=== PATIENT | female | born 1960 | race American Indian/Alaskan Native ===

== ENCOUNTER 2017-09-19 13:35 | Inpatient (IN) | payer OTHER ==
--- NOTE | 2017-09-19 14:36 | ED PDOC ---
Arrival/HPI - General Chief Complaint: Palpitations Time Seen by Provider: 09/19/17 13:46 Historian: Patient - History of Present Illness Narrative History of Present Illness (Text): 09/19/17 14:17 A 57 year old female, with no significant past medical history, presents to the emergency department complaining of palpitations. Patient reports walking downstairs to move the car and began experiencing palpitations. EMS was called and had found patient's heart rate to be greater than 180. Heart rate resolved prior to arrival to ER and was given Aspirin 81 mg x 3 in the field. No rhythm strip was performed. Patient states never having this happen before and denies of any weight loss/gain, recent fever, URI symptoms, nausea, vomiting, diarrhea , or any other complaints. Denies significant alcohol use. Denies drug use. No PMD Past Medical History - Provider Review Nursing Documentation Reviewed: Yes - Infectious Disease Hx of Infectious Diseases: None - Reproductive Menopause: Yes - Psychiatric Hx Substance Use: No - Anesthesia Hx Anesthesia: No Family/Social History - Physician Review Nursing Documentation Reviewed: Yes Family/Social History: No Known Family HX Smoking Status: Unknown If Ever Smoked Hx Alcohol Use: No Hx Substance Use: No Allergies/Home Meds Allergies/Adverse Reactions: Allergies codeine Allergy (Intermediate, Verified 09/19/17 13:48) FATIGUE Home Medications: Home Meds Medication Instructions Recorded Confirmed No Known Home Med 09/19/17 09/19/17 Review of Systems - Physician Review All systems were reviewed & negative as marked: Yes - Review of Systems Constitutional: absent: Weight Change, Fevers Respiratory: absent: SOB, Cough Cardiovascular: Palpitations. absent: Chest Pain, Edema, Calf Pain, GRIGGS, Orthopnea, Syncope Gastrointestinal: absent: Abdominal Pain, Constipation, Diarrhea, Nausea, Vomiting Neurological: absent: Headache, Dizziness, Focal Weakness, Gait Changes, Speech Changes, Facial Droop Physical Exam Vital Signs Reviewed: Yes Vital Signs Temp Pulse Resp BP Pulse Ox 09/19/17 13:49 98.2 F 80 18 137/65 98 Temperature: Afebrile Blood Pressure: Normal Pulse: Regular Respiratory Rate: Normal Appearance: Positive for: Well-Appearing, Non-Toxic, Comfortable Pain Distress: None Mental Status: Positive for: Alert and Oriented X 3 - Systems Exam Head: Present: Atraumatic, Normocephalic Pupils: Present: PERRL Extroacular Muscles: Present: EOMI Conjunctiva: Present: Normal Mouth: Present: Moist Mucous Membranes Neck: Present: Normal Range of Motion, Other (no thyromegaly) Respiratory/Chest: Present: Clear to Auscultation, Good Air Exchange. No: Respiratory Distress, Accessory Muscle Use Cardiovascular: Present: Regular Rate and Rhythm, Normal S1, S2. No: Murmurs Abdomen: Present: Normal Bowel Sounds. No: Tenderness, Distention, Peritoneal Signs Back: Present: Normal Inspection Upper Extremity: Present: Normal Inspection. No: Cyanosis, Edema Lower Extremity: Present: Normal Inspection. No: Edema Neurological: Present: GCS=15, CN II-XII Intact, Speech Normal Skin: Present: Warm, Dry, Normal Color. No: Rashes Psychiatric: Present: Alert, Oriented x 3, Normal Insight, Normal Concentration Medical Decision Making ED Course and Treatment: 09/19/17 14:20 Impression: 57 year old female with palpitations. Normal physical examination. Plan: -- EKG -- Chest X-ray -- Chest CT -- Labs -- Influenza A B test -- Reassess and disposition Progress Notes: EKG: Ordered, reviewed, and independently interpreted the EKG. Rate : 75 BPM Rhythm : NSR Interpretation : t wave inversions in III, t wave flattening v3-v6 Comparison : No previous EKG for comparison. 09/19/2017 15:28 Chest X-ray IMPRESSION: No active disease. Dictator: Magdi Low MD 09/19/2017 16:[address] IMPRESSION: Unremarkable CT pulmonary angiogram. No pulmonary embolus. Dictator: Magdi Low MD 09/19/17 17:30 Admitted to hospitalist for palpitations - Lab Interpretations Lab Results: 09/19/17 14:20 09/19/17 14:20 Lab Results 09/19/17 14:20: Free T4 0.96, TSH 3rd Generation 0.55 09/19/17 14:20: Sodium 143, Potassium 3.9, Chloride 106, Carbon Dioxide 27, Anion Gap 14, BUN 13, Creatinine 1.0, Est GFR ( Amer) > 60, Est GFR (Non- Af Amer) 57, Random Glucose 126 H, Calcium 9.5, Phosphorus 3.4, Magnesium 2.4 H , Total Bilirubin 0.3, AST 25, ALT 24, Alkaline Phosphatase 73, Total Creatine Kinase 118, Troponin I 0.02, NT-Pro-B Natriuret Pep 94.9, Total Protein 7.7, Albumin 3.9, Globulin 3.8, Albumin/Globulin Ratio 1.0 L 09/19/17 14:20: PT 11.3, INR 0.99, APTT 36.7 H, D-Dimer, Quantitative 1777 H 09/19/17 14:20: Influenza Typ A,B (EIA) Negative for flu a/b 09/19/17 14:20: WBC 5.7, RBC 4.71, Hgb 12.0, Hct 37.0, MCV 78.6 L, MCH 25.5, MCHC 32.4, RDW 15.4 H, Plt Count 348, MPV 9.2, Gran % 62.4, Lymph % (Auto) 29.0 , [place] % (Auto) 7.2 H, Eos % (Auto) 1.2 L, Baso % (Auto) 0.2, Gran # 3.55, Lymph # (Auto) 1.7, [place] # (Auto) 0.4, Eos # (Auto) 0.1, Baso # (Auto) 0.01 - RAD Interpretation Radiology Orders: 09/19/17 13:59 CHEST PORTABLE [RAD] Stat 09/19/17 15:11 ANGIO CHEST PE PROTOCOL [CT] Stat - Scribe Statement The provider has reviewed the documentation as recorded by the Shelbi Connor Provider Scribe Attestation: All medical record entries made by the Miguelitoibmerrick were at my direction and personally dictated by me. I have reviewed the chart and agree that the record accurately reflects my personal performance of the history, physical exam, medical decision making, and the department course for this patient. I have also personally directed, reviewed, and agree with the discharge instructions and disposition. Disposition/Present on Arrival - Present on Arrival Any Indicators Present on Arrival: No History of DVT/PE: No History of Uncontrolled Diabetes: No Urinary Catheter: No History of Decub. Ulcer: No History Surgical Site Infection Following: None - Disposition Have Diagnosis and Disposition been Completed?: Yes Diagnosis: Palpitations Disposition: HOSPITALIZED Disposition Time: 17:30 Patient Plan: Observation Condition: FAIR Referrals: [facility] Juan Diego Flannery, [Primary Care Provider] - Follow up with primary Forms: [employer] ([place]ian)
[2017-09-19 14:42] LABS: BASO # 0.01 K/mm3 (0.0-2.0); BASO % 0.2 % (0.0-3.0); EOS # 0.1 (0.0-0.7); EOS % 1.2 % (1.5-5.0); GRAN # 3.55 (1.4-6.5); GRAN % 62.4 % (50.0-68.0); LYMPH # 1.7 (1.2-3.4); MEAN CELL VOLUME 78.6 fl (80.0-105.0); MEAN CORPUSCULAR HEMOGLOBIN 25.5 pg (25.0-35.0); MEAN CORPUSCULAR HGB CONC 32.4 g/dl (31.0-37.0); MEAN PLATELET VOLUME 9.2 fl (7.0-11.0); MONO # 0.4 (0.1-0.6); MONO % 7.2 % (1.0-6.0); RBC 4.71 10^6/uL (3.5-6.1); RED CELL DISTRIBUTION WIDTH 15.4 % (11.5-14.5); WHITE BLOOD COUNT 5.7 10^3/ul (4.5-11.0)
[2017-09-19 15:01] LABS: INR 0.99 (0.93-1.08); PARTIAL THROMBOPLASTIN TIME 36.7 Seconds (25.1-36.5); PROTHROMBIN TIME 11.3 SECONDS (9.4-12.5)
[2017-09-19 15:02] LABS: ALBUMIN 3.9 g/dL (3.0-4.8); ALT/SGPT 24 U/L (7-56); AST/SGOT 25 U/L (14-36); B-TYPE NATRIURETIC PEPTIDE 94.9 pg/mL (0-450); BLOOD UREA NITROGEN 13 mg/dL (7-21); CALCIUM 9.5 mg/dL (8.4-10.5); GFR AFRICAN-AMERICAN > 60; GFR NON-AFRICAN AMERICAN 57; MAGNESIUM 2.4 mg/dL (1.7-2.2); TROPONIN I 0.02 ng/mL
[2017-09-19] MEDS ORDERED: Iohexol 350 MG/100 ML VIAL ONE (15:20)
--- NOTE | 2017-09-19 15:29 | RAD ---
HISTORY: palpitations COMPARISON: No prior. FINDINGS: LUNGS: No active pulmonary disease. PLEURA: No significant pleural effusion identified, no pneumothorax apparent. CARDIOVASCULAR: Normal. OSSEOUS STRUCTURES: No significant abnormalities. VISUALIZED UPPER ABDOMEN: Normal. OTHER FINDINGS: None. IMPRESSION: No active disease.
--- NOTE | 2017-09-19 16:05 | CT ---
PROCEDURE: CT Chest with contrast (Pulmonary Angiogram) HISTORY: chest pain, palpitations COMPARISON: None available. TECHNIQUE: Axial computed tomography images were obtained of the chest in the pulmonary arterial phase of enhancement. Coronal and sagittal reformatted images were created and reviewed. Intravenous contrast dose: 100 mL Omnipaque 350 Radiation dose: Total exam DLP = 443.60 mGy-cm. This CT exam was performed using one or more of the following dose reduction techniques: Automated exposure control, adjustment of the mA and/or kV according to patient size, and/or use of iterative reconstruction technique. FINDINGS: PULMONARY ARTERIES: Unremarkable. No pulmonary embolism. AORTA: No acute findings. No thoracic aortic aneurysm. LUNGS: Unremarkable. No nodule, mass or pulmonary consolidation. PLEURAL SPACES: Unremarkable. No effusion or pneuomothorax. HEART: Unremarkable. No cardiomegaly. No significant pericardial effusion. LYMPH NODES: No lymphadenopathy. BONES, CHEST WALL: Unremarkable. No fracture or destructive lesion OTHER FINDINGS: Unremarkable. IMPRESSION: Unremarkable CT pulmonary angiogram. No pulmonary embolus.
[2017-09-19 16:36] LABS: FREE T4 0.96 ng/dL (0.78-2.19)
--- NOTE | 2017-09-19 17:59 | CARD ---
APPROVED REPORT EKG Measurement Heart [id number] NC [id number] <Conclusion> Normal sinus rhythm Nonspecific T wave abnormality Abnormal ECG
--- NOTE | 2017-09-19 18:39 | CP.PCM.HP ---
<Warren Ochoa - Last Filed: 09/19/17 18:28> History of Present Illness - History of Present Illness History of Present Illness: CC: Palpitations 57F with no significant past medical history presents to the ED with palpitations. Pt states that she was at work today and during noon break she went outside to move her car when she started having palpitations. She than went back to her work and someone checked her heart rate and it was found to be 186BPM. Pt states that this is the first time this ever happened. Pt does state that >30 years ago when she was she had an arrhythmia but states that it went away on its own. She denies any associated sob or chest pain. Denies any sick contact or recent travel. 12 Point ROS performed and negative other than stated above. PMH: denies PSH: "gluteal cyst" removal ALL: codeine SH: former smoker of 1/2 PPD > 15 years , denies ETOH abuse or recreational abuse FH: denies Present on Admission - Present on Admission Any Indicators Present on Admission: No Review of Systems - Review of Systems All systems: reviewed and no additional remarkable complaints except Past Patient History - Infectious Disease Hx of Infectious Diseases: None - Past Social History Smoking Status: Unknown If Ever Smoked - PSYCHIATRIC Hx Substance Use: No - ANESTHESIA Hx Anesthesia: No Meds Allergies/Adverse Reactions: Allergies Allergy/AdvReac Type Severity Reaction Status Date / Time codeine Allergy Intermediate FATIGUE Verified 09/19/17 13:48 Physical Exam - Constitutional Appears: No Acute Distress - Head Exam Head Exam: ATRAUMATIC, NORMOCEPHALIC - Eye Exam Eye Exam: EOMI, PERRL - ENT Exam ENT Exam: Mucous Membranes Moist - Respiratory Exam Respiratory Exam: Clear to Auscultation Bilateral. absent: Rales, Wheezes - Cardiovascular Exam Cardiovascular Exam: REGULAR RHYTHM, RRR, +S1, +S2 - GI/Abdominal Exam GI & Abdominal Exam: Normal Bowel Sounds, Soft. absent: Distended, Tenderness - Extremities Exam Extremities exam: Negative for: calf tenderness, pedal edema - Neurological Exam Neurological exam: Alert, Oriented x3 - Psychiatric Exam Psychiatric exam: Normal Mood - Skin Skin Exam: Dry, Intact, Warm Results - Vital Signs Recent Vital Signs: Last Vital Signs Temp 98.2 F 09/19/17 13:49 Pulse 80 09/19/17 13:49 Resp 18 09/19/17 13:49 BP 137/65 09/19/17 13:49 Pulse Ox 98 09/19/17 13:49 - Labs Result Diagrams: 09/19/17 14:20 09/19/17 14:20 Labs: Laboratory Results - last 24 hr 09/19/17 09/19/17 09/19/17 14:20 14:20 14:20 WBC 5.7 RBC 4.71 Hgb 12.0 Hct 37.0 MCV 78.6 L MCH 25.5 MCHC 32.4 RDW 15.4 H Plt Count 348 MPV 9.2 Gran % 62.4 Lymph % (Auto) 29.0 [place] % (Auto) 7.2 H Eos % (Auto) 1.2 L Baso % (Auto) 0.2 Gran # 3.55 Lymph # (Auto) 1.7 [place] # (Auto) 0.4 Eos # (Auto) 0.1 Baso # (Auto) 0.01 PT 11.3 INR 0.99 APTT 36.7 H D-Dimer, Quantitative 1777 H Sodium Potassium Chloride Carbon Dioxide Anion Gap BUN Creatinine Est GFR ( Amer) Est GFR (Non-Af Amer) Random Glucose Calcium Phosphorus Magnesium Total Bilirubin AST ALT Alkaline Phosphatase Total Creatine Kinase Troponin I NT-Pro-B Natriuret Pep Total Protein Albumin Globulin Albumin/Globulin Ratio Free T4 TSH 3rd Generation Influenza Typ A,B (EIA) Negative for flu a/b 09/19/17 09/19/17 14:20 14:20 WBC RBC Hgb Hct MCV MCH MCHC RDW Plt Count MPV Gran % Lymph % (Auto) [place] % (Auto) Eos % (Auto) Baso % (Auto) Gran # Lymph # (Auto) [place] # (Auto) Eos # (Auto) Baso # (Auto) PT INR APTT D-Dimer, Quantitative Sodium 143 Potassium 3.9 Chloride 106 Carbon Dioxide 27 Anion Gap 14 BUN 13 Creatinine 1.0 Est GFR ( Amer) > 60 Est GFR (Non-Af Amer) 57 Random Glucose 126 H Calcium 9.5 Phosphorus 3.4 Magnesium 2.4 H Total Bilirubin 0.3 AST 25 ALT 24 Alkaline Phosphatase 73 Total Creatine Kinase 118 Troponin I 0.02 NT-Pro-B Natriuret Pep 94.9 Total Protein 7.7 Albumin 3.9 Globulin 3.8 Albumin/Globulin Ratio 1.0 L Free T4 0.96 TSH 3rd Generation 0.55 Influenza Typ A,B (EIA) Assessment & Plan - Assessment and Plan (Free Text) Assessment: 57F with no significant past medical history presents to the ED with palpitations possibly 2/2 SVT - resolved spontaneously. 1. Palpitation possibly 2/2 SVT - resolved - EKG reviewed - Troponin x1 neg - elevated D-dimer - CT chest angio- neg for PE - XCR - no active dx - Serial troponin - f/u cardiology consult - Echo ordered - TSH wnl - daily labs, Hba1c, lipid - started on metoprolol - tele monitoring 2. GI/DVT ppx - pepcid and SCDs Case and plan was reviewed and discussed in detail with Dr Valladares. <Odilia Valladares - Last Filed: 09/21/17 13:37> Results - Vital Signs Recent Vital Signs: Last Vital Signs Temp 98 F 09/21/17 12:00 Pulse 59 L 09/21/17 12:00 Resp 16 09/21/17 12:00 BP 122/78 09/21/17 12:00 Pulse Ox 95 09/21/17 06:00 - Labs Result Diagrams: 09/21/17 07:00 09/21/17 07:00 Labs: Laboratory Results - last 24 hr 09/20/17 09/20/17 09/21/17 15:53 19:47 07:00 WBC 5.6 RBC 4.61 Hgb 11.6 L Hct 36.6 MCV 79.4 L MCH 25.2 MCHC 31.7 RDW 15.5 H Plt Count 335 MPV 9.3 Gran % 63.1 Lymph % (Auto) 26.2 [place] % (Auto) 9.2 H Eos % (Auto) 1.3 L Baso % (Auto) 0.2 Gran # 3.52 Lymph # (Auto) 1.5 [place] # (Auto) 0.5 Eos # (Auto) 0.1 Baso # (Auto) 0.01 Sodium Potassium Chloride Carbon Dioxide Anion Gap BUN Creatinine Est GFR ( Amer) Est GFR (Non-Af Amer) Random Glucose Calcium Total Bilirubin AST ALT Alkaline Phosphatase Troponin I 0.05 D 0.05 Total Protein Albumin Globulin Albumin/Globulin Ratio 09/21/17 09/21/17 07:00 07:00 WBC RBC Hgb Hct MCV MCH MCHC RDW Plt Count MPV Gran % Lymph % (Auto) [place] % (Auto) Eos % (Auto) Baso % (Auto) Gran # Lymph # (Auto) [place] # (Auto) Eos # (Auto) Baso # (Auto) Sodium 144 Potassium 4.2 Chloride 104 Carbon Dioxide 30 Anion Gap 15 BUN 13 Creatinine 1.0 Est GFR ( Amer) > 60 Est GFR (Non-Af Amer) 57 Random Glucose 110 Calcium 9.8 Total Bilirubin 0.4 AST 28 ALT 25 Alkaline Phosphatase 78 Troponin I 0.04 Total Protein 7.6 Albumin 3.9 Globulin 3.8 Albumin/Globulin Ratio 1.0 L Attending/Attestation - Attestation I have personally seen and examined this patient.: Yes I have fully participated in the care of the patient.: Yes I have reviewed all pertinent clinical information: Yes Notes (Text): 09/21/17 13:33 Patient was seen and examined with medical laboratory technologist. Agreed with assessment and plan. 57 yrs old female with PMH of Obesity is admitted with H/O Palpitation .HR 180 noticed by EMS, no record is available.Patient is in NSR in ER. D dimer was elevated , CT angio chest is negative for Pulmonary embolism. We will monitor patient in telemetry, will check TSH level We will get 2D echo and cardiology evaluation. Management plan was discussed in detail with patient. Education was provided.
[2017-09-19 21:41] LABS: HDL CHOLESTEROL 45 mg/dL (29-60)
[2017-09-19 21:52] LABS: LDL CHOLESTEROL 34 mg/dL (0-129)
[2017-09-19 23:21] LABS: BARBITURATES, UR NEGATIVE (NEGATIVE); BENZODIAZEPINES, UR NEGATIVE (NEGATIVE); OPIATES, UR NEGATIVE (NEGATIVE); PHENCYCLIDINE, UR NEGATIVE (NEGATIVE)
[2017-09-20 07:29] LABS: BASO # 0.01 K/mm3 (0.0-2.0); BASO % 0.2 % (0.0-3.0); EOS # 0.1 (0.0-0.7); EOS % 1.4 % (1.5-5.0); GRAN # 3.51 (1.4-6.5); GRAN % 61.2 % (50.0-68.0); HEMOGLOBIN 11.4 g/dL (12.0-16.0); LYMPH # 1.6 (1.2-3.4); LYMPH % 27.6 % (22.0-35.0); MEAN CELL VOLUME 78.8 fl (80.0-105.0); MEAN CORPUSCULAR HEMOGLOBIN 25.2 pg (25.0-35.0); MEAN CORPUSCULAR HGB CONC 31.9 g/dl (31.0-37.0); MEAN PLATELET VOLUME 9.3 fl (7.0-11.0); MONO # 0.6 (0.1-0.6); MONO % 9.6 % (1.0-6.0); RBC 4.53 10^6/uL (3.5-6.1); RED CELL DISTRIBUTION WIDTH 15.6 % (11.5-14.5); WHITE BLOOD COUNT 5.7 10^3/ul (4.5-11.0)
[2017-09-20 07:45] LABS: ALBUMIN 3.7 g/dL (3.0-4.8); ALT/SGPT 29 U/L (7-56); AST/SGOT 22 U/L (14-36); BLOOD UREA NITROGEN 12 mg/dL (7-21); CALCIUM 9.5 mg/dL (8.4-10.5); GFR AFRICAN-AMERICAN > 60; GFR NON-AFRICAN AMERICAN > 60
[2017-09-20 07:49] LABS: TROPONIN I 0.07 ng/mL
--- NOTE | 2017-09-20 11:51 | CP.PCM.PN ---
<Polly Parks - Last Filed: 09/20/17 11:45> Subjective - Date & Time of Evaluation Date of Evaluation: 09/20/17 Time of Evaluation: 11:47 - Subjective Subjective: Polly Parks, PGY1, Medicine Progress Note for Dr Valladares: Pt seen and examined at bedside. No acute events overnight. Reports midsternal chest discomfort, states that it started after she had carrots last night. Denies cp, sob, diaphoresis, palpitations, syncope, dizziness, nausea, vomiting , abdominal pain, leg swelling. Objective - Vital Signs/Intake and Output Vital Signs (last 24 hours): Temp Pulse Resp BP Pulse Ox 97.8 F 64 19 132/68 97 09/20/17 06:00 09/20/17 11:02 09/20/17 06:00 09/20/17 11:02 09/20/17 06:00 Intake and Output: 09/20/17 09/20/17 06:59 18:59 Intake Total 480 Balance 480 - Medications Medications: Current Medications Aspirin (Ecotrin) 81 mg PO DAILY [facility] Last Admin: 09/20/17 11:04 Dose: 81 mg Atorvastatin Calcium (Lipitor) 40 mg PO DIN [facility] Famotidine (Pepcid) 40 mg PO HS [facility] Last Admin: 09/19/17 23:08 Dose: 40 mg Metoprolol Tartrate (Lopressor) 12.5 mg PO BID [facility] Last Admin: 09/20/17 11:02 Dose: 12.5 mg - Labs Labs: 09/20/17 07:00 09/20/17 07:00 PT 11.3 SECONDS (9.4-12.5) 09/19/17 14:20 INR 0.99 (0.93-1.08) 09/19/17 14:20 APTT 36.7 Seconds (25.1-36.5) H 09/19/17 14:20 - Constitutional Appears: Non-toxic, No Acute Distress - Head Exam Head Exam: ATRAUMATIC, NORMOCEPHALIC - Eye Exam Eye Exam: EOMI, PERRL. absent: Conjunctival injection, Scleral icterus Pupil Exam: NORMAL ACCOMODATION, PERRL. absent: Fixed, Irregular, Unequal - ENT Exam ENT Exam: Mucous Membranes Moist - Neck Exam Neck Exam: Full ROM - Respiratory Exam Respiratory Exam: Clear to Ausculation Bilateral, NORMAL BREATHING PATTERN. absent: Accessory Muscle Use, Rales, Rhonchi, Stridor - Cardiovascular Exam Cardiovascular Exam: RRR, +S1, +S2. absent: Murmur - GI/Abdominal Exam GI & Abdominal Exam: Soft, Normal Bowel Sounds. absent: Distended, Guarding, Tenderness, Mass, Organomegaly, Rebound - Extremities Exam Extremities Exam: Normal Inspection. absent: Calf Tenderness, Pedal Edema - Back Exam Back Exam: NORMAL INSPECTION - Neurological Exam Neurological Exam: Alert, Awake, Oriented x3 - Psychiatric Exam Psychiatric exam: Anxious - Skin Skin Exam: Dry, Normal Color, Warm Assessment and Plan - Assessment and Plan (Free Text) Assessment: 57F with no significant past medical history presents to the ED with palpitations, found to have indeterminate trops, reports chest discomfort today : 1. Palpitations and chest discomfort 2/2 SVT vs thyroid abnormalities vs GERD vs ACS - EKG reviewed in ED showed NSR. No ST/T wave abnormalities. - EKG this AM shows T wave changes in Leads II, II, AVf, V5, V6. F/u EKG this noon. - trop 0.02->0.05->0.07. likely from SVT. - elevated D-dimer 1770. F/u US LE. - CT chest angio- neg for PE - CXR - no active dx - f/u cardiology consult. Possible trest? - Echo ordered - TSH wnl - daily labs, Hba1c, lipid - C/w metoprolol - Started low dose lipitor - tele monitoring 2. GI/DVT ppx - pepcid and SCDs Case and plan was reviewed and discussed in detail with Dr Valladares. <Odilia Valladares - Last Filed: 09/21/17 13:43> Objective - Vital Signs/Intake and Output Vital Signs (last 24 hours): Temp Pulse Resp BP Pulse Ox 98 F 59 L 16 122/78 95 09/21/17 12:00 09/21/17 12:00 09/21/17 12:00 09/21/17 12:00 09/21/17 06:00 Intake and Output: 09/21/17 09/21/17 06:59 18:59 Intake Total 900 Balance 900 - Medications Medications: Current Medications Aspirin (Ecotrin) 81 mg PO DAILY [facility] Last Admin: 09/21/17 08:59 Dose: 81 mg Atorvastatin Calcium (Lipitor) 10 mg PO DIN [facility] Famotidine (Pepcid) 40 mg PO HS [facility] Last Admin: 09/20/17 21:48 Dose: 40 mg Metoprolol Tartrate (Lopressor) 12.5 mg PO BID [facility] Last Admin: 09/21/17 08:59 Dose: Not Given - Labs Labs: 09/21/17 07:00 09/21/17 07:00 PT 11.3 SECONDS (9.4-12.5) 09/19/17 14:20 INR 0.99 (0.93-1.08) 09/19/17 14:20 APTT 36.7 Seconds (25.1-36.5) H 09/19/17 14:20 Attending/Attestation - Attestation I have personally seen and examined this patient.: Yes I have fully participated in the care of the patient.: Yes I have reviewed all pertinent clinical information, including history, physical exam and plan: Yes Notes (Text): 09/21/17 13:37 Patient was seen and examined with director medical safety. Agreed with assessment and plan. 57 yrs old female with PMH of Obesity is admitted with H/O Palpitation .HR 180 noticed by EMS, no record is available.Patient is in NSR in ER. D dimer was elevated , CT angio chest is negative for Pulmonary embolism.Venous doppler is negative for DVT. TSH level is normal.Echo showed normal EF and grade diastolic dysfunction. Patient had episode of chest pain this morning,EKG showed new T wave changes in inferior lead, Patient is pain free. Cardiology evaluation is pending. Management plan was discussed in detail with patient. Education was provided.
--- NOTE | 2017-09-20 17:51 | CARD ---
APPROVED REPORT EXAM: Two-dimensional and M-mode echocardiogram with Doppler and color Doppler. INDICATION SVT 2D DIMENSIONS Left Atrium (2D)4.1 (1.6-4.0cm)IVSd1.2 (0.7-1.1cm) LVDd4.6 (3.9-5.9cm)PWd1.1 (0.7-1.1cm) LVDs2.9 (2.5-4.0cm)FS (%) 35.4 % LVEF (%)64.9 (>50%) M-Mode DIMENSIONS Aortic Root3.50 (2.2-3.7cm)Aortic Cusp Exc.1.80 (1.5-2.0cm) Aortic Valve AoV Peak Vibpxqng548.0cm/Judy Peak GR.9mmHg Mitral Valve MV E Xyichhnz17.1cm/sMV A Jctajeio11.8cm/sE/A ratio0.7 TDI Lateral E' Peak V7.74cm/sMedial E' Peak V5.85cm/sE/Lateral E'8.7 E/Medial E'11.5 Pulmonary Valve PV Peak Yiqaobnx06.6cm/sPV Peak Grad.2mmHg Tricuspid Valve TR Peak Zcsajwew480hw/sRAP [id number] Peak Gr.23mmHg [id number] LEFT VENTRICLE The left ventricle is normal size. There is borderline concentric left ventricular hypertrophy. The left ventricular function is normal. The left ventricular ejection fraction is within the normal range. There is normal LV segmental wall motion. Transmitral Doppler flow pattern is Grade I-abnormal relaxation pattern. RIGHT VENTRICLE The right ventricle is normal size. There is normal right ventricular wall thickness. The right ventricular systolic function is normal. ATRIA The left atrium size is normal. The right atrium size is normal. AORTIC VALVE The aortic valve is not well visualized. No aortic regurgitation is present. There is no aortic valvular stenosis. MITRAL VALVE The mitral valve is normal in structure. There is no mitral valve regurgitation noted. TRICUSPID VALVE The tricuspid valve is normal in structure. GREAT VESSELS The aortic root is normal in size. PERICARDIAL EFFUSION There is a trace circumferential pericardial effusion. <Conclusion> The left ventricle is normal size. There is borderline concentric left ventricular hypertrophy. The left ventricular function is normal. The left ventricular ejection fraction is within the normal range. There is normal LV segmental wall motion. Transmitral Doppler flow pattern is Grade I-abnormal relaxation pattern.
--- NOTE | 2017-09-20 18:35 | US ---
HISTORY: Leg pain and swelling. Evaluate for DVT PHYSICIAN(S): Magdi Yates MD. TECHNIQUE: Duplex sonography and color-flow Doppler with graded compression were used to evaluate the deep venous systems of both lower extremities. FINDINGS: The visualized deep venous systems of both lower extremities are sonographically normal and compressible. Normal wave forms and augmentation are seen. There is no sonographic evidence for deep venous thrombosis in the visualized segments of both lower extremities. IMPRESSION: No sonographic evidence for deep venous thrombosis in the visualized segments of both lower extremities.
--- NOTE | 2017-09-20 23:27 | CARD ---
APPROVED REPORT EKG Measurement Heart [id number] <Conclusion> Sinus bradycardia T wave abnormality, consider anterolateral ischemia Abnormal ECG
--- NOTE | 2017-09-20 23:35 | CARD ---
APPROVED REPORT EKG Measurement Heart [id number] DC 152P56 [id number] <Conclusion> Sinus bradycardia ST & T wave abnormality, consider anterolateral ischemia Abnormal ECG
--- NOTE | 2017-09-21 01:54 | CON ---
DATE: REASON FOR CONSULTATIONS: Palpitations. HISTORY OF PRESENT ILLNESS: The patient is a 57-year-old female, who presented to the emergency room because of palpitation while she was trying to cross a street to her car. The patient was found to have a heart rate greater than 180, which resolved after the arrival of the EMS to the field. There were no rhythm strip obtained at the time of the tachycardia. The patient had no recurrence of her symptoms while on telemetry, and there is no documented SVT or atrial fibrillation on telemetry. The patient denies any prior similar symptoms in the past. SOCIAL HISTORY: Nonsmoker. She works in [employer]. MEDICATIONS: Aspirin 81 mg once a day, Lopressor 12.5 mg twice a day, Lipitor 10 mg once a day, Pepcid 3 mg once a day. REVIEW OF SYSTEMS: No fever or chills. No vomiting or diarrhea. PHYSICAL EXAMINATION: GENERAL: The patient is a middle-aged female, who does not appear to be in any distress. VITAL SIGNS: Blood pressure 141/85, heart rate 64, temperature 97.5, respirations 18. HEENT: Normocephalic. NECK: No JVD. CHEST: Clear. HEART: Sounds regular. ABDOMEN: Soft. EXTREMITIES: No edema. LABORATORY DATA: SMA-7 today is within normal limits except for glucose of 114. Three sets of troponins, are not in the elevated range. Triglycerides elevated to 142. The rest of lipid profile is within normal limits. TSH level as well as T4 liver are within normal limits. D-dimer is 1777. PTT is prolonged at 36.7. Chest CT angio, unremarkable CT angiogram, no pulmonary embolus. The most recent EKG revealed sinus rhythm with evidence of anterolateral ischemia. The lateral T-wave inversion is new compared to the admitting EKG which revealed nonspecific T-wave changes. ASSESSMENT: 1. History of palpitation, rule out paroxysmal atrial fibrillation or supraventricular tachycardia. 2. Lateral ischemia, rule out non-ST elevation myocardial infarction. RECOMMENDATIONS: Continue current aspirin 81 mg once a day, Lipitor 10 mg once a day, Lopressor 12.5 mg once a day. I would review the echocardiographic study that was performed today. Leonard Rick MD
[2017-09-21 08:12] LABS: BASO # 0.01 K/mm3 (0.0-2.0); BASO % 0.2 % (0.0-3.0); EOS # 0.1 (0.0-0.7); EOS % 1.3 % (1.5-5.0); GRAN # 3.52 (1.4-6.5); GRAN % 63.1 % (50.0-68.0); HEMOGLOBIN 11.6 g/dL (12.0-16.0); LYMPH # 1.5 (1.2-3.4); LYMPH % 26.2 % (22.0-35.0); MEAN CELL VOLUME 79.4 fl (80.0-105.0); MEAN CORPUSCULAR HEMOGLOBIN 25.2 pg (25.0-35.0); MEAN CORPUSCULAR HGB CONC 31.7 g/dl (31.0-37.0); MEAN PLATELET VOLUME 9.3 fl (7.0-11.0); MONO # 0.5 (0.1-0.6); MONO % 9.2 % (1.0-6.0); RBC 4.61 10^6/uL (3.5-6.1); RED CELL DISTRIBUTION WIDTH 15.5 % (11.5-14.5); WHITE BLOOD COUNT 5.6 10^3/ul (4.5-11.0)
[2017-09-21 08:40] LABS: ALBUMIN 3.9 g/dL (3.0-4.8); ALT/SGPT 25 U/L (7-56); AST/SGOT 28 U/L (14-36); BLOOD UREA NITROGEN 13 mg/dL (7-21); CALCIUM 9.8 mg/dL (8.4-10.5); GFR AFRICAN-AMERICAN > 60; GFR NON-AFRICAN AMERICAN 57
--- NOTE | 2017-09-21 13:46 | CP.PCM.PN ---
<oPlly Parks - Last Filed: 09/21/17 13:39> Subjective - Date & Time of Evaluation Date of Evaluation: 09/21/17 Time of Evaluation: 13:39 - Subjective Subjective: Polly Parks, PGY1, Medicine Progress Note for Dr Valladares: Pt seen and examined at bedside. No acute events overnight. Denies cp, sob, diaphoresis, palpitations, wheezing, n/v, abdominal pain, leg swelling. Objective - Vital Signs/Intake and Output Vital Signs (last 24 hours): Temp Pulse Resp BP Pulse Ox 98 F 59 L 16 122/78 95 09/21/17 12:00 09/21/17 12:00 09/21/17 12:00 09/21/17 12:00 09/21/17 06:00 Intake and Output: 09/21/17 09/21/17 06:59 18:59 Intake Total 900 Balance 900 - Medications Medications: Current Medications Aspirin (Ecotrin) 81 mg PO DAILY [facility] Last Admin: 09/21/17 08:59 Dose: 81 mg Atorvastatin Calcium (Lipitor) 10 mg PO DIN [facility] Famotidine (Pepcid) 40 mg PO HS [facility] Last Admin: 09/20/17 21:48 Dose: 40 mg Metoprolol Tartrate (Lopressor) 12.5 mg PO BID [facility] Last Admin: 09/21/17 08:59 Dose: Not Given - Labs Labs: 09/21/17 07:00 09/21/17 07:00 PT 11.3 SECONDS (9.4-12.5) 09/19/17 14:20 INR 0.99 (0.93-1.08) 09/19/17 14:20 APTT 36.7 Seconds (25.1-36.5) H 09/19/17 14:20 - Additional Findings Additional findings: - Constitutional Appears: Non-toxic, No Acute Distress - Head Exam Head Exam: ATRAUMATIC, NORMOCEPHALIC - Eye Exam Eye Exam: EOMI, PERRL. absent: Conjunctival injection, Scleral icterus Pupil Exam: NORMAL ACCOMODATION, PERRL. absent: Fixed, Irregular, Unequal - ENT Exam ENT Exam: Mucous Membranes Moist - Neck Exam Neck Exam: Full ROM - Respiratory Exam Respiratory Exam: Clear to Auscultation Bilateral, NORMAL BREATHING PATTERN. absent: Accessory Muscle Use, Rales, Rhonchi, Stridor - Cardiovascular Exam Cardiovascular Exam: RRR, +S1, +S2. absent: Murmur - GI/Abdominal Exam GI & Abdominal Exam: Soft, Normal Bowel Sounds. absent: Distended, Guarding, Tenderness, Mass, Organomegaly, Rebound - Extremities Exam Extremities Exam: Normal Inspection. absent: Calf Tenderness, Pedal Edema - Back Exam Back Exam: NORMAL INSPECTION - Neurological Exam Neurological Exam: Alert, Awake, Oriented x3 - Psychiatric Exam Psychiatric exam: Anxious - Skin Skin Exam: Dry, Normal Color, Warm Assessment and Plan - Assessment and Plan (Free Text) Assessment: 57F with no significant past medical history presents to the ED with palpitations, found to have indeterminate trops, reports chest discomfort today : 1. Palpitations and chest discomfort 2/2 SVT vs thyroid abnormalities vs GERD vs ACS - EKG reviewed in ED showed NSR. No ST/T wave abnormalities. - EKG this AM shows T wave changes in Leads II, II, AVf, V5, V6. F/u EKG this noon. - trop 0.02->0.05->0.07->0.05->0.05->0.04. - elevated D-dimer 1770. LE US negative for DVT. - CT chest angio- neg for PE - CXR - no active dx - Cardiology consult (Dr Rick). Recommends cardiac cath on Saturday. - Echo showed ef 65%. borderline LVH. normal LV segmental wall motion. Grade 1 abnormal relaxation pattern. - TSH wnl - daily labs - triglycerides 242, chol 145, ldl 34, hdl 45 - C/w metoprolol, low dose lipitor, ASA 81 mg. - started Plavix 75 mg daily - tele monitoring 2. GI/DVT ppx - pepcid and SCDs Case and plan was reviewed and discussed in detail with Dr Valladares. <Odilia Valladares - Last Filed: 09/21/17 14:50> Objective - Vital Signs/Intake and Output Vital Signs (last 24 hours): Temp Pulse Resp BP Pulse Ox 98 F 59 L 16 122/78 95 09/21/17 12:00 09/21/17 12:00 09/21/17 12:00 09/21/17 12:00 09/21/17 06:00 Intake and Output: 09/21/17 09/21/17 06:59 18:59 Intake Total 900 Balance 900 - Medications Medications: Current Medications Aspirin (Ecotrin) 81 mg PO DAILY [facility] Last Admin: 09/21/17 08:59 Dose: 81 mg Atorvastatin Calcium (Lipitor) 10 mg PO DIN [facility] Clopidogrel Bisulfate (Plavix) 75 mg PO DAILY [facility] Last Admin: 09/21/17 14:23 Dose: 75 mg Famotidine (Pepcid) 40 mg PO HS [facility] Last Admin: 09/20/17 21:48 Dose: 40 mg Metoprolol Tartrate (Lopressor) 12.5 mg PO BID [facility] Last Admin: 09/21/17 08:59 Dose: Not Given - Labs Labs: 09/21/17 07:00 09/21/17 07:00 PT 11.3 SECONDS (9.4-12.5) 09/19/17 14:20 INR 0.99 (0.93-1.08) 09/19/17 14:20 APTT 36.7 Seconds (25.1-36.5) H 09/19/17 14:20 Attending/Attestation - Attestation I have personally seen and examined this patient.: Yes I have fully participated in the care of the patient.: Yes I have reviewed all pertinent clinical information, including history, physical exam and plan: Yes Notes (Text): 09/21/17 14:50 Patient was seen and examined with medical data analyst. Agreed with assessment and plan. 57 yrs old female with PMH of Obesity is admitted with H/O Palpitation .HR 180 noticed by EMS, no record is available.Patient is in NSR in ER. D dimer was elevated , CT angio chest is negative for Pulmonary embolism.Venous doppler is negative for DVT. TSH level is normal.Echo showed normal EF and grade diastolic dysfunction. Patient had episode of chest pain yesterday morning,EKG showed new T wave changes in inferior lead, Patient is pain free.Troponins are negative Cardiology evaluation is appreciated.Patient is for cardiac cath on Saturday. Management plan was discussed in detail with patient. Education was provided
[2017-09-21] MEDS: Enoxaparin 40 mg Syringe SC SCH (17:58)
--- NOTE | 2017-09-21 19:50 | PN ---
DATE: SUBJECTIVE: The patient denies any chest pain. Poor palpitation. No reported arrhythmia. PHYSICAL EXAMINATION: VITAL SIGNS: Blood pressure 122/78, heart rate 69, temperature 98, respirations 16. HEENT: Normocephalic. CHEST: Clear. HEART: Sounds regular. EXTREMITIES: No edema. LABORATORY DATA: Today's SMA-7 is within normal limit. Echocardiographic study, borderline concentric LVH with normal systolic function and grade 1 abnormal relaxation pattern. ASSESSMENT AND PLAN: 1. Periods of tachycardia, does not documented. 2. Lateral ischemic electrocardiogram changes. CONDITION: Case was discussed with medical team. Continue aspirin, Lipitor and Lopressor as well as Plavix. Cardiac catheterization was recommended for Saturday. The patient has not made up her decision yet. Her case was discussed with Leonard Rick MD
[2017-09-22 07:32] LABS: BASO # 0.01 K/mm3 (0.0-2.0); BASO % 0.1 % (0.0-3.0); EOS # 0.1 (0.0-0.7); GRAN # 4.42 (1.4-6.5); GRAN % 65.4 % (50.0-68.0); HEMOGLOBIN 11.8 g/dL (12.0-16.0); LYMPH # 1.8 (1.2-3.4); LYMPH % 26.1 % (22.0-35.0); MEAN CORPUSCULAR HGB CONC 31.6 g/dl (31.0-37.0); MEAN PLATELET VOLUME 9.3 fl (7.0-11.0); MONO # 0.5 (0.1-0.6); MONO % 7.4 % (1.0-6.0); RBC 4.72 10^6/uL (3.5-6.1); RED CELL DISTRIBUTION WIDTH 15.2 % (11.5-14.5); WHITE BLOOD COUNT 6.8 10^3/ul (4.5-11.0)
[2017-09-22 07:48] LABS: ALB/GLOB RATIO 1.1 (1.1-1.8); ALT/SGPT 25 U/L (7-56); AST/SGOT 25 U/L (14-36); BLOOD UREA NITROGEN 13 mg/dL (7-21); CALCIUM 9.8 mg/dL (8.4-10.5); GFR AFRICAN-AMERICAN > 60; GFR NON-AFRICAN AMERICAN 57
[2017-09-22] MEDS: Enoxaparin 40 mg Syringe SC SCH (09:04)
--- NOTE | 2017-09-22 11:57 | CP.PCM.PN ---
<Polly Parks - Last Filed: 09/22/17 11:53> Subjective - Date & Time of Evaluation Date of Evaluation: 09/22/17 Time of Evaluation: 11:53 - Subjective Subjective: Polly Parks, PGY1, Medicine Progress Note for Dr Valladares: Pt seen and examined at bedside. No acute events overnight. Denies cp, sob, diaphoresis, palpitations, wheezing, n/v, abdominal pain, leg swelling. Objective - Vital Signs/Intake and Output Vital Signs (last 24 hours): Temp Pulse Resp BP Pulse Ox 98 F 64 20 140/93 H 99 09/21/17 23:42 09/22/17 10:42 09/21/17 23:42 09/22/17 10:42 09/21/17 23:42 Intake and Output: 09/22/17 09/22/17 06:59 18:59 Intake Total 200 Output Total 0 Balance 200 - Medications Medications: Current Medications Aspirin (Ecotrin) 81 mg PO DAILY [facility] Last Admin: 09/22/17 09:05 Dose: 81 mg Atorvastatin Calcium (Lipitor) 10 mg PO DIN [facility] Last Admin: 09/21/17 17:54 Dose: 10 mg Clopidogrel Bisulfate (Plavix) 75 mg PO DAILY [facility] Last Admin: 09/22/17 09:05 Dose: 75 mg Enoxaparin Sodium (Lovenox) 40 mg SC DAILY [facility] PRN Reason: Protocol Last Admin: 09/22/17 09:04 Dose: 40 mg Famotidine (Pepcid) 40 mg PO HS [facility] Last Admin: 09/21/17 21:40 Dose: 40 mg Metoprolol Tartrate (Lopressor) 12.5 mg PO BID [facility] Last Admin: 09/22/17 10:42 Dose: 12.5 mg - Labs Labs: 09/22/17 07:00 09/22/17 07:00 PT 11.3 SECONDS (9.4-12.5) 09/19/17 14:20 INR 0.99 (0.93-1.08) 09/19/17 14:20 APTT 36.7 Seconds (25.1-36.5) H 09/19/17 14:20 - Additional Findings Additional findings: - Constitutional Appears: Non-toxic, No Acute Distress - Head Exam Head Exam: ATRAUMATIC, NORMOCEPHALIC - Eye Exam Eye Exam: EOMI, PERRL. absent: Conjunctival injection, Scleral icterus Pupil Exam: NORMAL ACCOMODATION, PERRL. absent: Fixed, Irregular, Unequal - ENT Exam ENT Exam: Mucous Membranes Moist - Neck Exam Neck Exam: Full ROM - Respiratory Exam Respiratory Exam: Clear to Auscultation Bilateral, NORMAL BREATHING PATTERN. absent: Accessory Muscle Use, Rales, Rhonchi, Stridor - Cardiovascular Exam Cardiovascular Exam: RRR, +S1, +S2. absent: Murmur - GI/Abdominal Exam GI & Abdominal Exam: Soft, Normal Bowel Sounds. absent: Distended, Guarding, Tenderness, Mass, Organomegaly, Rebound - Extremities Exam Extremities Exam: Normal Inspection. absent: Calf Tenderness, Pedal Edema - Back Exam Back Exam: NORMAL INSPECTION - Neurological Exam Neurological Exam: Alert, Awake, Oriented x3 - Psychiatric Exam Psychiatric exam: normal mood/affect. - Skin Skin Exam: Dry, Normal Color, Warm Assessment and Plan - Assessment and Plan (Free Text) Assessment: 57F with no significant past medical history presents to the ED with palpitations and chest pressure, found to have indeterminate trops with EKG changes. Pt scheduled for cardiac cath tomorrow with Dr Rick. NPO after midnight: 1. Palpitations and chest discomfort: 2/2 SVT vs GERD vs ACS - EKG reviewed in ED showed NSR. No ST/T wave abnormalities. - EKG this AM shows T wave changes in Leads II, II, AVf, V5, V6. F/u EKG this noon. - trop 0.02->0.05->0.07->0.05->0.05->0.04. - elevated D-dimer 1770. LE US negative for DVT. - CT chest angio- neg for PE - CXR - no active dx - Cardiology consult (Dr Rick). Recommends cardiac cath on Saturday. - Echo showed ef 65%. borderline LVH. normal LV segmental wall motion. Grade 1 abnormal relaxation pattern. - TSH wnl - daily labs - triglycerides 242, chol 145, ldl 34, hdl 45 - C/w metoprolol, low dose lipitor, ASA 81 mg. - C/w Plavix 75 mg daily - tele monitoring 2. GI/DVT ppx - pepcid and lovenox Case and plan was reviewed and discussed in detail with Dr Valladares. <Odilia Valladares - Last Filed: 09/22/17 15:54> Objective - Vital Signs/Intake and Output Vital Signs (last 24 hours): Temp Pulse Resp BP Pulse Ox 97.8 F 58 L 17 116/66 99 09/22/17 12:00 09/22/17 14:00 09/22/17 12:00 09/22/17 12:00 09/21/17 23:42 Intake and Output: 09/22/17 09/22/17 06:59 18:59 Intake Total 200 Output Total 0 Balance 200 - Medications Medications: Current Medications Aspirin (Ecotrin) 81 mg PO DAILY [facility] Last Admin: 09/22/17 09:05 Dose: 81 mg Atorvastatin Calcium (Lipitor) 10 mg PO DIN [facility] Last Admin: 09/21/17 17:54 Dose: 10 mg Clopidogrel Bisulfate (Plavix) 75 mg PO DAILY [facility] Last Admin: 09/22/17 09:05 Dose: 75 mg Enoxaparin Sodium (Lovenox) 40 mg SC DAILY [facility] PRN Reason: Protocol Last Admin: 09/22/17 09:04 Dose: 40 mg Famotidine (Pepcid) 40 mg PO HS [facility] Last Admin: 09/21/17 21:40 Dose: 40 mg Metoprolol Tartrate (Lopressor) 12.5 mg PO BID [facility] Last Admin: 09/22/17 10:42 Dose: 12.5 mg - Labs Labs: 09/22/17 07:00 09/22/17 07:00 PT 11.3 SECONDS (9.4-12.5) 09/19/17 14:20 INR 0.99 (0.93-1.08) 09/19/17 14:20 APTT 36.7 Seconds (25.1-36.5) H 09/19/17 14:20 Attending/Attestation - Attestation I have personally seen and examined this patient.: Yes I have fully participated in the care of the patient.: Yes I have reviewed all pertinent clinical information, including history, physical exam and plan: Yes Notes (Text): 09/22/17 15:52 Patient was seen and examined with medical sociologist. Agreed with assessment and plan. Patient remain stable.There is no overnight issue.She is awaiting for cardiac catherization on [place]. In Summary is 57 yrs old female with PMH of Obesity is admitted with H/O Palpitation .HR 180 noticed by EMS, no record is available.Patient is in NSR in ER. D dimer was elevated , CT angio chest is negative for Pulmonary embolism.Venous doppler is negative for DVT. TSH level is normal.Echo showed normal EF and grade diastolic dysfunction. Patient had episode of chest pain 2 days back ,EKG showed new T wave changes in inferior lead, Patient is pain free.Troponins are negative.Patient was evaluated by Cardiology and is scheduled is for cardiac cath on Saturday. Management plan was discussed in detail with patient. Education was provided
--- NOTE | 2017-09-22 19:54 | PN ---
DATE: FOLLOWUP SUBJECTIVE: Patient denies any chest pain. No reported arrhythmia. OBJECTIVE: VITAL SIGNS: Blood pressure 116/66, heart rate 65, temperature 97.8, respirations 17. HEENT: Normocephalic. CHEST: Clear. HEART: S1, S2 regular. EXTREMITIES: No edema. LABORATORY DATA: Today's hemoglobin and hematocrit 11.8 and 37.3. Today's SMA-7 is within normal limits except for glucose 115. ASSESSMENT: 1. Tachycardia with dizziness and near syncope. No documentation with tachycardia. 2. Lateral ischemia by echocardiogram. RECOMMENDATIONS: Continue aspirin, Lipitor, Lopressor and Plavix. Patient will be kept n.p.o. after breakfast for possible cardiac catheterization tomorrow depending on the schedule availability. Leonard Rick MD
[2017-09-23 06:13] VITALS: O2SAT 98
[2017-09-23 08:06] LABS: BASO # 0.01 K/mm3 (0.0-2.0); BASO % 0.2 % (0.0-3.0); EOS # 0.1 (0.0-0.7); EOS % 1.3 % (1.5-5.0); GRAN # 2.2 (1.4-6.5); GRAN % 46.8 % (50.0-68.0); HEMOGLOBIN 11.6 g/dL (12.0-16.0); LYMPH % 43.4 % (22.0-35.0); MEAN CELL VOLUME 79.1 fl (80.0-105.0); MEAN CORPUSCULAR HEMOGLOBIN 25.3 pg (25.0-35.0); MEAN PLATELET VOLUME 9.3 fl (7.0-11.0); MONO # 0.4 (0.1-0.6); MONO % 8.3 % (1.0-6.0); RBC 4.59 10^6/uL (3.5-6.1); RED CELL DISTRIBUTION WIDTH 15.3 % (11.5-14.5); WHITE BLOOD COUNT 4.7 10^3/ul (4.5-11.0)
[2017-09-23 08:16] LABS: ALB/GLOB RATIO 1.1 (1.1-1.8); ALBUMIN 3.9 g/dL (3.0-4.8); ALT/SGPT 23 U/L (7-56); AST/SGOT 23 U/L (14-36); BLOOD UREA NITROGEN 11 mg/dL (7-21); CALCIUM 9.6 mg/dL (8.4-10.5); GFR AFRICAN-AMERICAN > 60; GFR NON-AFRICAN AMERICAN > 60
[2017-09-23] MEDS: Enoxaparin 40 mg Syringe SC SCH (09:40)
[2017-09-23] MEDS ORDERED: Lidocaine 2% Inj (20ml) ONE (10:22)
[2017-09-23] MEDS ORDERED: Midazolam 2 MG/2 ML VIAL ONE (10:22)
[2017-09-23] MEDS ORDERED: Iohexol 350mgl/ml 50 ML ONE (10:23)
[2017-09-23] MEDS ORDERED: HEPARIN SODIUM/NS 2,000 ML IV ONE (10:23)
[2017-09-23] MEDS ORDERED: Iodixanol 320 MG/ML 200 ML BOTTLE IV ONE (10:23)
[2017-09-23 13:10] VITALS: TEMP 98.2
--- NOTE | 2017-09-23 14:05 | CP.PCM.PN ---
<Polly Parks - Last Filed: 09/23/17 14:02> Subjective - Date & Time of Evaluation Date of Evaluation: 09/23/17 Time of Evaluation: 14:02 - Subjective Subjective: Polly Parks, PGY1, Medicine Progress Note for Dr Parker: Pt seen and examined at bedside. No acute events overnight. Denies cp, sob, diaphoresis, palpitations, wheezing, n/v, abdominal pain, leg swelling. Objective - Vital Signs/Intake and Output Vital Signs (last 24 hours): Temp Pulse Resp BP Pulse Ox 98.2 F 50 L 18 99/64 L 98 09/23/17 12:25 09/23/17 12:25 09/23/17 12:25 09/23/17 12:25 09/23/17 06:00 Intake and Output: 09/23/17 09/23/17 06:59 18:59 Intake Total 760 Balance 760 - Medications Medications: Current Medications Aspirin (Ecotrin) 81 mg PO DAILY [facility] Last Admin: 09/23/17 09:44 Dose: 81 mg Atorvastatin Calcium (Lipitor) 10 mg PO DIN [facility] Last Admin: 09/22/17 17:24 Dose: 10 mg Clopidogrel Bisulfate (Plavix) 75 mg PO DAILY [facility] Last Admin: 09/23/17 09:44 Dose: 75 mg Enoxaparin Sodium (Lovenox) 40 mg SC DAILY [facility] PRN Reason: Protocol Last Admin: 09/23/17 09:40 Dose: Not Given Famotidine (Pepcid) 40 mg PO HS [facility] Last Admin: 09/22/17 21:49 Dose: 40 mg Metoprolol Tartrate (Lopressor) 12.5 mg PO BID [facility] Last Admin: 09/23/17 09:40 Dose: Not Given - Labs Labs: 09/23/17 08:00 09/23/17 08:00 PT 11.3 SECONDS (9.4-12.5) 09/19/17 14:20 INR 0.99 (0.93-1.08) 09/19/17 14:20 APTT 36.7 Seconds (25.1-36.5) H 09/19/17 14:20 - Additional Findings Additional findings: - Constitutional Appears: Non-toxic, No Acute Distress - Head Exam Head Exam: ATRAUMATIC, NORMOCEPHALIC - Eye Exam Eye Exam: EOMI, PERRL. absent: Conjunctival injection, Scleral icterus Pupil Exam: NORMAL ACCOMODATION, PERRL. absent: Fixed, Irregular, Unequal - ENT Exam ENT Exam: Mucous Membranes Moist - Neck Exam Neck Exam: Full ROM - Respiratory Exam Respiratory Exam: Clear to Auscultation Bilateral, NORMAL BREATHING PATTERN. absent: Accessory Muscle Use, Rales, Rhonchi, Stridor - Cardiovascular Exam Cardiovascular Exam: RRR, +S1, +S2. absent: Murmur - GI/Abdominal Exam GI & Abdominal Exam: Soft, Normal Bowel Sounds. absent: Distended, Guarding, Tenderness, Mass, Organomegaly, Rebound - Extremities Exam Extremities Exam: Normal Inspection. absent: Calf Tenderness, Pedal Edema - Back Exam Back Exam: NORMAL INSPECTION - Neurological Exam Neurological Exam: Alert, Awake, Oriented x3 - Psychiatric Exam Psychiatric exam: normal mood/affect. - Skin Skin Exam: Dry, Normal Color, Warm Assessment and Plan - Assessment and Plan (Free Text) Assessment: 57F with no significant past medical history presents to the ED with palpitations and chest pressure, found to have indeterminate trops with EKG changes. Pt scheduled for cardiac cath today with Dr Rick. NPO today: 1. Palpitations and chest discomfort: 2/2 ACS vs SVT vs GERD - EKG reviewed in ED showed NSR. No ST/T wave abnormalities. - EKG this AM shows T wave changes in Leads II, II, AVf, V5, V6. F/u EKG this noon. - trop 0.02->0.05->0.07->0.05->0.05->0.04. - elevated D-dimer 1770. LE US negative for DVT. - CT chest angio- neg for PE - CXR - no active dx - Cardiology consult (Dr Rick). Cardiac cath today. F/u results. - Echo showed ef 65%. borderline LVH. normal LV segmental wall motion. Grade 1 abnormal relaxation pattern. - TSH wnl - daily labs - triglycerides 242, chol 145, ldl 34, hdl 45 - C/w metoprolol, low dose lipitor, ASA 81 mg. - C/w Plavix 75 mg daily - tele monitoring 2. GI/DVT ppx - pepcid and lovenox Case and plan was reviewed and discussed in detail with Dr Parker. <Karol Parker - Last Filed: 09/23/17 14:43> Objective - Vital Signs/Intake and Output Vital Signs (last 24 hours): Temp Pulse Resp BP Pulse Ox 98.2 F 50 L 18 99/64 L 98 09/23/17 12:25 09/23/17 12:25 09/23/17 12:25 09/23/17 12:25 09/23/17 06:00 Intake and Output: 09/23/17 09/23/17 06:59 18:59 Intake Total 760 Balance 760 - Medications Medications: Current Medications Aspirin (Ecotrin) 81 mg PO DAILY [facility] Last Admin: 09/23/17 09:44 Dose: 81 mg Atorvastatin Calcium (Lipitor) 10 mg PO DIN [facility] Last Admin: 09/22/17 17:24 Dose: 10 mg Clopidogrel Bisulfate (Plavix) 75 mg PO DAILY [facility] Last Admin: 09/23/17 09:44 Dose: 75 mg Enoxaparin Sodium (Lovenox) 40 mg SC DAILY [facility] PRN Reason: Protocol Last Admin: 09/23/17 09:40 Dose: Not Given Famotidine (Pepcid) 40 mg PO HS [facility] Last Admin: 09/22/17 21:49 Dose: 40 mg Metoprolol Tartrate (Lopressor) 12.5 mg PO BID [facility] Last Admin: 09/23/17 09:40 Dose: Not Given - Labs Labs: 09/23/17 08:00 09/23/17 08:00 PT 11.3 SECONDS (9.4-12.5) 09/19/17 14:20 INR 0.99 (0.93-1.08) 09/19/17 14:20 APTT 36.7 Seconds (25.1-36.5) H 09/19/17 14:20 Attending/Attestation - Attestation I have personally seen and examined this patient.: Yes I have fully participated in the care of the patient.: Yes I have reviewed all pertinent clinical information, including history, physical exam and plan: Yes Notes (Text): 09/23/17 14:37 57 year old female who presented with complaint of palpitations followed by chest pain. Her HR was as high as 180 and she was started on metoprolol. Serial cardiac enyzmes were negative. She is for cardiac cath today. D-dimer was elevated however CT angio and LE dopplers were negative. Karol Parker MD Hospitalist.
--- NOTE | 2017-09-23 14:43 | CP.PCM.DIS ---
<Polly Parks - Last Filed: 09/23/17 15:45> Provider - Provider Date of Admission: 09/21/17 14:51 Attending physician: Karol Parker MD Primary care physician: Jeramie Rick Time Spent in preparation of Discharge (in minutes): 35 Diagnosis - Discharge Diagnosis (1) Chest pain Status: Acute (2) Palpitations Status: Acute Hospital Course - Lab Results Lab Results: Most Recent Lab Values WBC 4.7 10^3/ul (4.5-11.0) D 09/23/17 08:00 RBC 4.59 10^6/uL (3.5-6.1) 09/23/17 08:00 Hgb 11.6 g/dL (12.0-16.0) L 09/23/17 08:00 Hct 36.3 % (36.0-48.0) 09/23/17 08:00 MCV 79.1 fl (80.0-105.0) L 09/23/17 08:00 MCH 25.3 pg (25.0-35.0) 09/23/17 08:00 MCHC 32.0 g/dl (31.0-37.0) 09/23/17 08:00 RDW 15.3 % (11.5-14.5) H 09/23/17 08:00 Plt Count 323 10^3/uL (120.0-450.0) 09/23/17 08:00 MPV 9.3 fl (7.0-11.0) 09/23/17 08:00 Gran % 46.8 % (50.0-68.0) L 09/23/17 08:00 Lymph % (Auto) 43.4 % (22.0-35.0) H 09/23/17 08:00 Hardin % (Auto) 8.3 % (1.0-6.0) H 09/23/17 08:00 Eos % (Auto) 1.3 % (1.5-5.0) L 09/23/17 08:00 Baso % (Auto) 0.2 % (0.0-3.0) 09/23/17 08:00 Gran # 2.20 (1.4-6.5) 09/23/17 08:00 Lymph # (Auto) 2.0 (1.2-3.4) 09/23/17 08:00 Hardin # (Auto) 0.4 (0.1-0.6) 09/23/17 08:00 Eos # (Auto) 0.1 (0.0-0.7) 09/23/17 08:00 Baso # (Auto) 0.01 K/mm3 (0.0-2.0) 09/23/17 08:00 PT 11.3 SECONDS (9.4-12.5) 09/19/17 14:20 INR 0.99 (0.93-1.08) 09/19/17 14:20 APTT 36.7 Seconds (25.1-36.5) H 09/19/17 14:20 D-Dimer, Quantitative 1777 ng/mL (0-243) H 09/19/17 14:20 Sodium 144 mmol/L (132-148) 09/23/17 08:00 Potassium 4.2 mmol/L (3.6-5.0) 09/23/17 08:00 Chloride 106 mmol/L (98-107) 09/23/17 08:00 Carbon Dioxide 27 mmol/L (21-33) 09/23/17 08:00 Anion Gap 15 (10-20) 09/23/17 08:00 BUN 11 mg/dL (7-21) 09/23/17 08:00 Creatinine 0.9 mg/dl (0.7-1.2) 09/23/17 08:00 Est GFR ( Amer) > 60 09/23/17 08:00 Est GFR (Non-Af Amer) > 60 09/23/17 08:00 Random Glucose 108 mg/dL (70-110) 09/23/17 08:00 Hemoglobin A1c 6.5 % (4.2-6.5) 09/19/17 21:10 Calcium 9.6 mg/dL (8.4-10.5) 09/23/17 08:00 Phosphorus 3.4 mg/dL (2.5-4.5) 09/19/17 14:20 Magnesium 2.4 mg/dL (1.7-2.2) H 09/19/17 14:20 Total Bilirubin 0.5 mg/dL (0.2-1.3) 09/23/17 08:00 AST 23 U/L (14-36) 09/23/17 08:00 ALT 23 U/L (7-56) 09/23/17 08:00 Alkaline Phosphatase 71 U/L (38-126) 09/23/17 08:00 Total Creatine Kinase 118 U/L (35-230) 09/19/17 14:20 Troponin I 0.04 ng/mL 09/21/17 07:00 NT-Pro-B Natriuret Pep 94.9 pg/mL (0-450) 09/19/17 14:20 Total Protein 7.5 g/dL (5.8-8.3) 09/23/17 08:00 Albumin 3.9 g/dL (3.0-4.8) 09/23/17 08:00 Globulin 3.6 gm/dL 09/23/17 08:00 Albumin/Globulin Ratio 1.1 (1.1-1.8) 09/23/17 08:00 Triglycerides 242 mg/dL (35-160) H 09/19/17 21:10 Cholesterol 145 mg/dL (130-200) 09/19/17 21:10 LDL Cholesterol Direct 34 mg/dL (0-129) 09/19/17 21:10 HDL Cholesterol 45 mg/dL (29-60) 09/19/17 21:10 Free T4 0.96 ng/dL (0.78-2.19) 09/19/17 14:20 TSH 3rd Generation 0.55 mIU/mL (0.46-4.68) 09/19/17 14:20 Urine Opiates Screen Negative (NEGATIVE) 09/19/17 22:51 Urine Methadone Screen Negative (NEGATIVE) 09/19/17 22:51 Ur Barbiturates Screen Negative (NEGATIVE) 09/19/17 22:51 Ur Phencyclidine Scrn Negative (NEGATIVE) 09/19/17 22:51 Ur Amphetamines Screen Negative (NEGATIVE) 09/19/17 22:51 U Benzodiazepines Scrn Negative (NEGATIVE) 09/19/17 22:51 U Oth Cocaine Metabols Negative (NEGATIVE) 09/19/17 22:51 U Cannabinoids Screen Negative (NEGATIVE) 09/19/17 22:51 Influenza Typ A,B (EIA) Negative for flu a/b (NEGATIVE) 09/19/17 14:20 - Hospital Course Hospital Course: 57F with no significant past medical history presents to the ED with palpitations. Pt states that she was at work and during noon break she went outside to move her car when she started having palpitations, with HR 186 at the clinic. Pt admitted for palpitations, pt also started feeling chest pressure. Pts troponins were seen to be 0.02->0.05->0.07 with EEKG changes - T waves in lateral leads. Echocardiogram showed normal results. Pt underwent cardiac cath, which did not show significant stenosis. Pt discharged on baby ASA and lipitor. Pt to f/u with baker operator automatic outpatient for possible holter monitor. Pt verbalized understanding of the plan. Discharge Exam - Head Exam Head Exam: ATRAUMATIC, NORMOCEPHALIC - Eye Exam Eye Exam: EOMI, PERRL. absent: Conjunctival injection, Nystagmus, Scleral icterus Pupil Exam: NORMAL ACCOMODATION, PERRL. absent: Unequal - ENT Exam ENT Exam: Mucous Membranes Moist - Neck Exam Neck exam: Full Rom - Respiratory Exam Respiratory Exam: Clear to PA & Lateral, NORMAL BREATHING PATTERN. absent: Chest Wall Tenderness, Rhonchi, Wheezes, Respiratory Distress - Cardiovascular Exam Cardiovascular Exam: REGULAR RHYTHM, RRR, +S1, +S2. absent: Systolic Murmur - GI/Abdominal Exam GI & Abdominal Exam: Normal Bowel Sounds, Soft. absent: Distended, Rigid, Tenderness - Extremities Exam Extremities exam: normal inspection - Neurological Exam Neurological exam: Alert, Oriented x3 - Psychiatric Exam Psychiatric exam: Normal Affect, Normal Mood - Skin Skin Exam: Dry, Normal Color, Warm Discharge Plan - Discharge Medications Prescriptions: Aspirin [Ecotrin] 81 mg PO DAILY #30 tabec Atorvastatin [Lipitor] 10 mg PO DIN #30 tab Pantoprazole Sodium [Protonix] 40 mg PO DAILY #20 ect - Follow Up Plan Condition: FAIR Disposition: HOME/ ROUTINE Instructions: Chest Pain (DC), Costochondritis (DC), Gastroesophageal Reflux Disease (DC) Additional Instructions: - Take ASA 81 mg daily, Lipitor 10 mg daily. - F/u outpatient with cardiology for the palpitations, in 1-2 weeks. - F/u with primary care doctor in 1 week. - Return to ER if any concerns. <Karol Parker - Last Filed: 09/23/17 16:05> Provider - Provider Date of Admission: 09/21/17 14:51 Attending physician: Karol Parker MD Hospital Course - Lab Results Lab Results: Most Recent Lab Values WBC 4.7 10^3/ul (4.5-11.0) D 09/23/17 08:00 RBC 4.59 10^6/uL (3.5-6.1) 09/23/17 08:00 Hgb 11.6 g/dL (12.0-16.0) L 09/23/17 08:00 Hct 36.3 % (36.0-48.0) 09/23/17 08:00 MCV 79.1 fl (80.0-105.0) L 09/23/17 08:00 MCH 25.3 pg (25.0-35.0) 09/23/17 08:00 MCHC 32.0 g/dl (31.0-37.0) 09/23/17 08:00 RDW 15.3 % (11.5-14.5) H 09/23/17 08:00 Plt Count 323 10^3/uL (120.0-450.0) 09/23/17 08:00 MPV 9.3 fl (7.0-11.0) 09/23/17 08:00 Gran % 46.8 % (50.0-68.0) L 09/23/17 08:00 Lymph % (Auto) 43.4 % (22.0-35.0) H 09/23/17 08:00 Hardin % (Auto) 8.3 % (1.0-6.0) H 09/23/17 08:00 Eos % (Auto) 1.3 % (1.5-5.0) L 09/23/17 08:00 Baso % (Auto) 0.2 % (0.0-3.0) 09/23/17 08:00 Gran # 2.20 (1.4-6.5) 09/23/17 08:00 Lymph # (Auto) 2.0 (1.2-3.4) 09/23/17 08:00 Hardin # (Auto) 0.4 (0.1-0.6) 09/23/17 08:00 Eos # (Auto) 0.1 (0.0-0.7) 09/23/17 08:00 Baso # (Auto) 0.01 K/mm3 (0.0-2.0) 09/23/17 08:00 PT 11.3 SECONDS (9.4-12.5) 09/19/17 14:20 INR 0.99 (0.93-1.08) 09/19/17 14:20 APTT 36.7 Seconds (25.1-36.5) H 09/19/17 14:20 D-Dimer, Quantitative 1777 ng/mL (0-243) H 09/19/17 14:20 Sodium 144 mmol/L (132-148) 09/23/17 08:00 Potassium 4.2 mmol/L (3.6-5.0) 09/23/17 08:00 Chloride 106 mmol/L (98-107) 09/23/17 08:00 Carbon Dioxide 27 mmol/L (21-33) 09/23/17 08:00 Anion Gap 15 (10-20) 09/23/17 08:00 BUN 11 mg/dL (7-21) 09/23/17 08:00 Creatinine 0.9 mg/dl (0.7-1.2) 09/23/17 08:00 Est GFR ( Amer) > 60 09/23/17 08:00 Est GFR (Non-Af Amer) > 60 09/23/17 08:00 Random Glucose 108 mg/dL (70-110) 09/23/17 08:00 Hemoglobin A1c 6.5 % (4.2-6.5) 09/19/17 21:10 Calcium 9.6 mg/dL (8.4-10.5) 09/23/17 08:00 Phosphorus 3.4 mg/dL (2.5-4.5) 09/19/17 14:20 Magnesium 2.4 mg/dL (1.7-2.2) H 09/19/17 14:20 Total Bilirubin 0.5 mg/dL (0.2-1.3) 09/23/17 08:00 AST 23 U/L (14-36) 09/23/17 08:00 ALT 23 U/L (7-56) 09/23/17 08:00 Alkaline Phosphatase 71 U/L (38-126) 09/23/17 08:00 Total Creatine Kinase 118 U/L (35-230) 09/19/17 14:20 Troponin I 0.04 ng/mL 09/21/17 07:00 NT-Pro-B Natriuret Pep 94.9 pg/mL (0-450) 09/19/17 14:20 Total Protein 7.5 g/dL (5.8-8.3) 09/23/17 08:00 Albumin 3.9 g/dL (3.0-4.8) 09/23/17 08:00 Globulin 3.6 gm/dL 09/23/17 08:00 Albumin/Globulin Ratio 1.1 (1.1-1.8) 09/23/17 08:00 Triglycerides 242 mg/dL (35-160) H 09/19/17 21:10 Cholesterol 145 mg/dL (130-200) 09/19/17 21:10 LDL Cholesterol Direct 34 mg/dL (0-129) 09/19/17 21:10 HDL Cholesterol 45 mg/dL (29-60) 09/19/17 21:10 Free T4 0.96 ng/dL (0.78-2.19) 09/19/17 14:20 TSH 3rd Generation 0.55 mIU/mL (0.46-4.68) 09/19/17 14:20 Urine Opiates Screen Negative (NEGATIVE) 09/19/17 22:51 Urine Methadone Screen Negative (NEGATIVE) 09/19/17 22:51 Ur Barbiturates Screen Negative (NEGATIVE) 09/19/17 22:51 Ur Phencyclidine Scrn Negative (NEGATIVE) 09/19/17 22:51 Ur Amphetamines Screen Negative (NEGATIVE) 09/19/17 22:51 U Benzodiazepines Scrn Negative (NEGATIVE) 09/19/17 22:51 U Oth Cocaine Metabols Negative (NEGATIVE) 09/19/17 22:51 U Cannabinoids Screen Negative (NEGATIVE) 09/19/17 22:51 Influenza Typ A,B (EIA) Negative for flu a/b (NEGATIVE) 09/19/17 14:20 Attending/Attestation - Attestation I have personally seen and examined this patient.: Yes I have fully participated in the care of the patient.: Yes I have reviewed all pertinent clinical information, including history, physical exam and plan: Yes Notes (Text): 09/23/17 16:03 57 year old female who presented with complaint of palpitations followed by chest pain. Her HR was as high as 180s and she was started on metoprolol. Serial cardiac enyzmes were negative. Chest pain and palpitations resolved. She is s/p cardiac cath today which showed no significant findings per cardiology. D-dimer was elevated however CT angio and LE dopplers were negative. Patient is discharged home to follow up with her pmd. Metoprolol was discontinued because of bradycardia. Karol Parker MD Hospitalist.
[2017-09-23 18:28] VITALS: RESP 16
[2017-09-23 18:29] VITALS: BP 135/90; PULSE 59
--- NOTE | 2017-09-24 00:02 | CARDCATH ---
PROCEDURE DATE: HISTORY: Patient is a 57-year-old female, who has a history of hypertension and hyperlipidemia, presented because of palpitation, dizziness, and near syncope. There was no documentation of the palpitation episode. EKG was consistent with lateral ischemia. Cardiac catheterization was recommended. The procedure and its risks fully explained to the patient, who understood and agreed for the procedure. PROCEDURE: After local infiltration with 1% lidocaine, a 6-Canadian sheath was placed in the right femoral artery. Left and right coronary angiography were performed with 6-Canadian JL-4 and JR-4 diagnostic catheters. Left ventriculogram was performed with 6-Canadian pigtail catheter. The patient tolerated the procedures well without any complications. ANGIOGRAPHIC FINDINGS: Selective injection of revealed the left main to be a normal vessel. The left main bifurcated into a medium-sized LAD and medium-sized circumflex artery. The entire left coronary artery circulation was angiographically unremarkable. Selective injection of the right coronary artery revealed a medium-sized dominant vessel. This was angiographically unremarkable. Left ventriculogram performed in the RIVAS projection revealed normal wall motion and ejection fraction, which was estimated at 55%. CONCLUSION: Unremarkable coronary artery circulation and normal left ventricular systolic function. RECOMMENDATIONS: The patient can be discharged on aspirin and Lopressor therapy, and if palpitation recurs, I will consider a 24-hour Holter monitor or an event monitor. Leonard Rick MD
== END 2017-09-23 21:17 | disposition home or self-care (01) | DRG 125 ==
LOC: ED 13:35 → ERH 16:22 → 3RSO 22:06 → OBSVTOIN 09-21 14:51 → 2RSO 09-23 12:30
PROVIDERS: ADMIT Internal Medicine; ATTEND Internal Medicine
PROC: 4A023N7 Measurement of Cardiac Sampling and Pressure, Left Heart, Percutaneous Approach (ICD-10-PCS; principal; 2017-09-23)
PROC: B2151ZZ Fluoroscopy of Left Heart using Low Osmolar Contrast (ICD-10-PCS; 2017-09-23)
PROC: B2111ZZ Fluoroscopy of Multiple Coronary Arteries using Low Osmolar Contrast (ICD-10-PCS; 2017-09-23)
DX: R00.2 Palpitations (principal); R07.89 Other chest pain; I10 Essential (primary) hypertension; E78.5 Hyperlipidemia, unspecified; R55 Syncope and collapse; R42 Dizziness and giddiness; K21.9 Gastro-esophageal reflux disease without esophagitis; E66.9 Obesity, unspecified; Z68.39 Body mass index [BMI] 39.0-39.9, adult; Z87.891 Personal history of nicotine dependence

== ENCOUNTER 2018-02-09 21:17 | Emergency (ER) | payer SELFPAY ==
[2018-02-09 21:29] VITALS: RESP 18; TEMP 98.6; O2SAT 99
--- NOTE | 2018-02-09 23:29 | ED PDOC ---
Arrival/HPI - General Historian: Patient <Cora Daley - Last Filed: 02/09/18 23:51> <Faheem De Leon - Last Filed: 02/10/18 00:52> - General Chief Complaint: ENT Problem Time Seen by Provider: 02/09/18 22:27 - History of Present Illness Narrative History of Present Illness (Text): 02/09/18 22:26 57 year old female who presents to the Emergency department complaining of right -sided head/ear pain for the past 2 days. Patient is concerned she may have an infection in her ear and states pain is located just posterior to her right ear. Patient did not take any medication for pain. Patient denies any decreased hearing, fever, chills, URI symptoms, vision changes, or any other complaints. Patient also reports she has been experiencing a right-sided intermittent headache for the past 2 days, though not significant enough to require any pain medication. (Cora Daley) Past Medical History - Provider Review Nursing Documentation Reviewed: Yes - Infectious Disease Hx of Infectious Diseases: None - Reproductive Menopause: Yes - Cardiac Hx Cardiac Arrhythmia: Yes - Integumentary Hx Dermatological Disorder: Yes (Removal of gluteal cyst) - Musculoskeletal/Rheumatological Hx Falls: No - Psychiatric Hx Substance Use: No - Anesthesia Hx Anesthesia: No <Cora Daley - Last Filed: 02/09/18 23:51> Family/Social History - Physician Review Nursing Documentation Reviewed: Yes Family/Social History: Unknown Family HX Smoking Status: Former Smoker Hx Alcohol Use: No Hx Substance Use: No <Cora Daley - Last Filed: 02/09/18 23:51> Allergies/Home Meds <Cora Daley - Last Filed: 02/09/18 23:51> <Faheem De Leon - Last Filed: 02/10/18 00:52> Allergies/Adverse Reactions: Allergies codeine Allergy (Intermediate, Verified 02/09/18 21:29) FATIGUE Review of Systems - Physician Review All systems were reviewed & negative as marked: Yes - Review of Systems Constitutional: Normal. absent: Fevers Eyes: Normal. absent: Vision Changes ENT: Other (+right ear pain) Respiratory: Normal. absent: SOB, Cough Cardiovascular: Normal. absent: Chest Pain Gastrointestinal: Normal. absent: Abdominal Pain, Diarrhea, Nausea, Vomiting Genitourinary Female: Normal. absent: Dysuria, Frequency, Hematuria, Urine Output Changes Musculoskeletal: Normal. absent: Back Pain, Neck Pain Skin: Normal. absent: Rash Neurological: Headache. absent: Dizziness Endocrine: Normal Hemo/Lymphatic: Normal Psychiatric: Normal <Cora Daley T - Last Filed: 02/09/18 23:51> Physical Exam Vital Signs Reviewed: Yes Temperature: Afebrile Blood Pressure: Normal Pulse: Regular Respiratory Rate: Normal Appearance: Positive for: Well-Appearing, Non-Toxic, Comfortable Pain Distress: None Mental Status: Positive for: Alert and Oriented X 3 - Systems Exam Head: Present: Atraumatic, Tenderness (Tenderness to right mastoid process, no edema, no erythema noted to area), Other (there is a large non tender, mobile mass noted to right forehead. ). No: Swelling, Ecchymosis Pupils: Present: PERRL Extroacular Muscles: Present: EOMI Conjunctiva: Present: Normal Ears: Present: Normal, Erythema (slight TM erythema noted to right TM.), Normal Canal. No: TM Bulging, Fluid, TM Perf, Other (No pinna pull, no tragal tug. + minimal tenderness over right mastoid process, no edema, no erythema) Mouth: Present: Moist Mucous Membranes. No: Drooling, Trismus Pharnyx: Present: Normal. No: ERYTHEMA, EXUDATE, TONSILS ENLARGED, Peritonsilar Swelling, Uvular Deviation, Muffled/Hoarse Voice, Strider, Soft Palate/Uvular Edema Nose (External): Present: Atraumatic Nose (Internal): Present: Clear Mucous, Other (Sinus congestion). No: Septal Hematoma Neck: Present: Normal Range of Motion. No: Meningeal Signs, MIDLINE TENDERNESS , Paraspinal Tenderness Respiratory/Chest: Present: Clear to Auscultation, Good Air Exchange. No: Respiratory Distress, Accessory Muscle Use Cardiovascular: Present: Regular Rate and Rhythm, Normal S1, S2. No: Murmurs Upper Extremity: Present: Normal Inspection Neurological: Present: GCS=15, Speech Normal Skin: Present: Warm, Dry, Normal Color. No: Rashes Psychiatric: Present: Alert, Oriented x 3 <Cora Daley T - Last Filed: 02/09/18 23:51> Vital Signs Temp Pulse Resp BP Pulse Ox 02/09/18 21:24 98.6 F 62 18 143/85 99 Medical Decision Making <Cora Daley - Last Filed: 02/09/18 23:51> <Faheem De Leon - Last Filed: 02/10/18 00:52> ED Course and Treatment: 02/09/18 22:26 Impression: 57 year old female presents with right-sided head/ear pain x2 days. with slight tenderness over right mastoid process; Plan: -- CT Head w/o contrast r/o mastoiditis -- Reassess and disposition Progress Notes: 02/09/18 23:54 pt is non toxic well appearing; no distress. stable vitals. ct head; FINDINGS: Brain: Unremarkable. No hemorrhage. No significant white matter disease. No edema. Ventricles: Unremarkable. No ventriculomegaly. Bones/joints: Unremarkable. No acute fracture. Soft tissues: There is a fat-containing 5 x 1.7 cm lesion in the right frontal subcutaneous tissue. Sinuses: Unremarkable as visualized. No acute sinusitis. Mastoid air cells: Unremarkable as visualized. No mastoid effusion. IMPRESSION: No acute findings will cover patient with amoxicillin for otitis media. advised f/u with PMD and ENT. advised return if symptoms worsen,persist or if new symptoms develop. Patient verbalizes understanding of discharge instructions and need for immediate followup. all aspects of this case were discussed the attending of record. impression; earache motrin every 6 hours as needed for pain amoxicillin 3 times daily x 10 days follow up with the ENT specialist within the next 2 days Follow up with the primary care physician within the next 2 days return if symptoms worsen,persist or if new symptoms develop. (Cora Daley) - RAD Interpretation Radiology Orders: 02/09/18 22:27 HEAD W/O CONTRAST [CT] Stat - Medication Orders Current Medication Orders: Discontinued Medications Amoxicillin (Amoxil 500 Mg Cap) 500 mg PO STAT STA PRN Reason: Protocol Stop: 02/10/18 00:05 Last Admin: 02/10/18 00:21 Dose: 500 mg Ibuprofen (Motrin Tab) 600 mg PO STAT STA Stop: 02/10/18 00:05 Last Admin: 02/10/18 00:21 Dose: 600 mg - Scribe Statement The provider has reviewed the documentation as recorded by the Scribe <Cora Daley - Last Filed: 02/09/18 23:51> - PA / HORSE DOCTOR / Resident Statement / has reviewed & agrees with the documentation as recorded. <MoisesFaheem - Last Filed: 02/10/18 00:52> - Scribe Statement Eloisa Angeles Provider Scribe Attestation: All medical record entries made by the Scribe were at my direction and personally dictated by me. I have reviewed the chart and agree that the record accurately reflects my personal performance of the history, physical exam, medical decision making, and the department course for this patient. I have also personally directed, reviewed, and agree with the discharge instructions and disposition. (Cora Daley) Disposition/Present on Arrival - Present on Arrival Any Indicators Present on Arrival: No History of DVT/PE: No History of Uncontrolled Diabetes: No Urinary Catheter: No History of Decub. Ulcer: No History Surgical Site Infection Following: None - Disposition Have Diagnosis and Disposition been Completed?: Yes Disposition Time: 23:59 Patient Plan: Discharge <Croa Daley - Last Filed: 02/09/18 23:51> <MoisesFaheem - Last Filed: 02/10/18 00:52> - Disposition Diagnosis: Otitis media Disposition: HOME/ ROUTINE Condition: GOOD Discharge Instructions (ExitCare): Ear Infections (Otitis Media) (DC) Additional Instructions: motrin every 6 hours as needed for pain amoxicillin 3 times daily x 10 days follow up with the ENT specialist within the next 2 days Follow up with the primary care physician within the next 2 days return if symptoms worsen,persist or if new symptoms develop. Prescriptions: Amoxicillin 500 mg PO TID #30 tab Ibuprofen [Motrin] 600 mg PO Q6H PRN #20 tab PRN Reason: pain/fever reduction Referrals: [facility] [place] - Follow up with primary Ángel Lagos DO [Staff Provider] - Follow up with primary Romel Little MD [Staff Provider] - Follow up with primary Forms: [employer] (Khmer), WORK NOTE
[2018-02-10 02:57] VITALS: BP 132/68; PULSE 88
--- NOTE | 2018-02-10 07:46 | CT ---
PROCEDURE: CT HEAD WITHOUT CONTRAST. HISTORY: right mastoid tenderness COMPARISON: None available. TECHNIQUE: Axial computed tomography images were obtained through the head/brain without intravenous contrast. Radiation dose: Total exam DLP = 1028.82 she mGy-cm. This CT exam was performed using one or more of the following dose reduction techniques: Automated exposure control, adjustment of the mA and/or kV according to patient size, and/or use of iterative reconstruction technique. FINDINGS: HEMORRHAGE: No intracranial hemorrhage. BRAIN: No mass effect or edema. No atrophy or chronic microvascular ischemic changes. VENTRICLES: Unremarkable. No hydrocephalus. CALVARIUM: Unremarkable. PARANASAL SINUSES: Unremarkable as visualized. No significant inflammatory changes. MASTOID AIR CELLS: Unremarkable as visualized. No inflammatory changes. OTHER FINDINGS: Subcutaneous mass, well-circumscribed interposed between the skin surface and the calvarium with mean Hounsfield units -132 consistent with subcutaneous lipoma. No adjacent calvarial or underlying intracranial abnormalities. IMPRESSION: No acute intracranial abnormalities. No significant findings to account for the clinical presentation. Concordant results (preliminary interpretation) provided by [employer]. Procedure Completed: 22:44 Preliminary ([facility]) Report: Dictated and Authenticated: 23:24 Final Interpretation: 07:45 February 10, 2018.
== END 2018-02-10 00:05 | disposition home or self-care (01) ==
LOC: ED 21:17
DX: H66.91 Otitis media, unspecified, right ear (principal); Z87.891 Personal history of nicotine dependence